=== PATIENT | female | born 2000 | race Caucasian/White ===

== ENCOUNTER → 2022-08-03 | Day surgery (SDC) | payer OTHER ==
[~2022-08-03] MED LIST: FENTANYL CITRATE/PF 100MCG/2 ML INJ ONE; LEXAPRO5 MG PO; MIDAZOLAM HCL 2 MG/2 ML VIAL ONE; NORCO 10-325 T1 EACH PO; ONDANSETRON ODT4 MG PO
[2022-08-03 15:00] VITALS: BP 112/76
== END | disposition home or self-care (01) ==
LOC: OR 12:11
PROVIDERS: ATTEND Internal Medicine Gastroenterology
DX: K29.70 Gastritis, unspecified, without bleeding (principal); K31.89 Other diseases of stomach and duodenum; K20.90 Esophagitis, unspecified without bleeding; K21.9 Gastro-esophageal reflux disease without esophagitis; R63.4 Abnormal weight loss; R05.3 Chronic cough; F41.9 Anxiety disorder, unspecified; F17.290 Nicotine dependence, other tobacco product, uncomplicated; Z71.6 Tobacco abuse counseling; Z88.1 Allergy status to other antibiotic agents; Z79.899 Other long term (current) drug therapy; Z86.16 Personal history of COVID-19
CPT/HCPCS: 43239; 81025; C9113; J2250; J3010

== ENCOUNTER 2022-08-15 09:52 | Emergency (ER) | payer OTHER ==
[~2022-08-15] VITALS: Ht 160 cm; Wt 72.6 kg
[~2022-08-15 09:52] MED LIST changes: -FENTANYL CITRATE/PF 100MCG/2 ML INJ ONE; -MIDAZOLAM HCL 2 MG/2 ML VIAL ONE
== END 2022-08-15 10:10 | disposition left against medical advice (07) ==
LOC: ER 10:05
DX: R00.2 Palpitations (principal); F60.3 Borderline personality disorder